=== PATIENT | male | born 1965 | race American Indian/Alaskan Native ===

== ENCOUNTER 2017-07-17 00:43 | Emergency (ER) | payer OTHER ==
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
== END 2017-07-17 07:00 ==
LOC: ED 00:43
DX: I46.9 Cardiac arrest, cause unspecified (principal); I10 Essential (primary) hypertension